=== PATIENT | male | born 1995 | race Caucasian/White ===

== ENCOUNTER 2016-07-08 20:58 | Emergency (ER) | payer BC ==
[2016-07-09] MEDS ORDERED: SODIUM CHLORIDE 0.9% 1,000 ML ONE ×2 (01:21→03:38)
[2016-07-09] MEDS ORDERED: ONDANSETRON 4 MG VIAL ONE (01:21)
[2016-07-09] MEDS ORDERED: METOCLOPRAMIDE 10 MG/2 ML VIAL ONE (01:43)
[2016-07-09] MEDS ORDERED: KETOROLAC 30 MG/ML VIAL ONE (01:43)
[2016-07-09] MEDS ORDERED: DIPHENHYDRAMINE 50 MG/ML VIAL ONE (01:43)
== END 2016-07-09 05:00 | disposition home or self-care (01) ==
LOC: ER 20:58
DX: R51 Headache (principal); T43.595A Adverse effect of other antipsychotics and neuroleptics, initial encounter; Z79.899 Other long term (current) drug therapy; F17.210 Nicotine dependence, cigarettes, uncomplicated; I10 Essential (primary) hypertension; E11.9 Type 2 diabetes mellitus without complications
CPT/HCPCS: 36415; 70450; 74000; 80053; 80307; 81003; 82271; 83690; 85025; 87804; 87880; 96361; 96374; 96375